=== PATIENT | female | born 1965 | race Caucasian/White ===

== ENCOUNTER 2018-03-11 04:21 | Inpatient (IN) | payer OTHER ==
[2018-03-11] MEDS ORDERED: BISACODYL (EC) 5 MG TAB PO (05:30)
[2018-03-11] MEDS ORDERED: NACL 0.9% 3 ML SYG IV (05:30)
[2018-03-11] MEDS ORDERED: ONDANSETRON 4 MG INJ IV (05:30)
[2018-03-11] MEDS ORDERED: NITROGLYCERIN (SL) 0.4 MG TAB SL (05:30)
[2018-03-11] MEDS ORDERED: DOCUSATE SODIUM 100 MG CAP PO (05:30)
[2018-03-11 08:49] LABS: ADD MAN DIFF? NO
[2018-03-11 08:57] LABS: WHITE BLOOD COUNT 3.9 10^3/ul (4.8-10.8)
[2018-03-11 08:57] LABS: EOSINOPHILS # 0.2 10^3/ul (0.0-0.5); EOSINOPHILS % 4.1 % (0.0-7.0); HEMATOCRIT 37.5 % (37.0-47.0); HEMOGLOBIN 12.4 g/dl (12.0-16.0); LYMPHOCYTES # 1.7 10^3/ul (0.8-2.9); LYMPHOCYTES % 44.2 % (15.0-51.0); MEAN CORPUSCULAR HEMOGLOBIN 31.6 pg (29.0-33.0); MEAN CORPUSCULAR HGB CONC 33.1 g/dl (32.0-37.0); MEAN CORPUSCULAR VOLUME 95.7 fl (82.0-101.0); MEAN PLATELET VOLUME 10.7 fl (7.4-10.4); MONOCYTE # 0.4 10^3/ul (0.3-0.9); MONOCYTES % 10.9 % (0.0-11.0); NEUTROPHIL # 1.5 10^3/ul (1.6-7.5); NEUTROPHILS % 39.8 % (39.0-77.0); PLATELET COUNT 222 10^3/UL (140-415); RED BLOOD COUNT 3.92 10^6/ul (4.20-5.40); RED CELL DISTRIBUTION WIDTH 12.7 % (11.5-14.5)
[2018-03-11 09:13] LABS: CREATINE KINASE 107 IU/L (23-200)
[2018-03-11 09:17] LABS: ALANINE AMINOTRANSFERASE 43 IU/L (13-69); ALBUMIN 3.4 g/dl (3.3-4.9); ALBUMIN/GLOBULIN RATIO 1.21; ALKALINE PHOSPHATASE 50 IU/L (42-121); ANION GAP 9 (8-16); ASPARTATE AMINO TRANSFERASE 32 IU/L (15-46); BILIRUBIN,INDIRECT 0.6 mg/dl (0-1.1); BILIRUBIN,TOTAL 0.6 mg/dl (0.2-1.3); BLOOD UREA NITROGEN 12 mg/dl (7-20); CALCIUM 9.9 mg/dl (8.4-10.2); CARBON DIOXIDE 26 mmol/L (21-31); CHLORIDE 112 mmol/L (97-110); CREATININE 0.53 mg/dl (0.44-1.00); GLUCOSE 97 mg/dl (70-220); POTASSIUM 4.2 mmol/L (3.5-5.1); SODIUM 143 mmol/L (135-144); TOTAL PROTEIN 6.2 g/dl (6.1-8.1)
[2018-03-11 09:19] LABS: HEMOGLOBIN A1C 5.8 % (0-5.9)
[2018-03-11 09:26] LABS: CK INDEX 1.3; CK-MB 1.43 ng/ml (0.0-2.4); TROPONIN-I 0.012 ng/ml (0.000-0.120)
[2018-03-11] MEDS: ACETAMINOPHEN 325 MG TAB PO (11:19)
[2018-03-11 15:51] LABS: CREATINE KINASE 81 IU/L (23-200)
[2018-03-11 16:04] LABS: CK INDEX 1.2; CK-MB 0.95 ng/ml (0.0-2.4)
== END 2018-03-11 18:19 | disposition home or self-care (01) | DRG 313 ==
LOC: MS4 04:21
DX: R07.9 Chest pain, unspecified (principal); I42.1 Obstructive hypertrophic cardiomyopathy; R00.1 Bradycardia, unspecified; M25.551 Pain in right hip; I10 Essential (primary) hypertension; G89.29 Other chronic pain; M25.561 Pain in right knee
CPT/HCPCS: 73520; 73562-50; 80053; 80076; 82550; 82553; 83036; 83735; 84443; 84484; 85025; 93306